=== PATIENT | female | born 1990 | race Caucasian/White ===

== ENCOUNTER 2016-07-08 15:35 | Emergency (ER) | payer MEDICAID ==
--- NOTE | 2016-07-14 08:46 | ER ---
ADMIT: 07/08/2016 RM/LOC: ER [facility] MR#: [id number] [address] [id number] [address]IB[address] TREVINO [address] [place] [address] Emergency Room Report SEX: F AGE: 25 : 1990 DATE: 07/08/2016 This 25-year-old female, status post vaginal hysterectomy done in [place] by Dr. Joseph, comes to the Emergency Department with complaints of abdominal pain. She states her [place] is no longer holding her pain, it has become severe. See T sheet for history physical. Her exam was remarkable for a lightly touch of her abdomen, she screamed in pain. Again, just by placing a stethoscope on her abdomen, she screamed in pain. CBC was significant for a hemoglobin of 9.7. CT scans showed likely blood in the pelvis. I did discuss her care with Dr. Joseph who stated the patient was a somewhat difficult patient to manage and required high doses of narcotics to control recurrent pain. The patient is discharged in stable condition. Given prescription for Ultram, instructed to follow up with Dr. Joseph this week. DIAGNOSIS: Abdominal pain. Austin Rios MD/ xander JOB #: [id number] CC: Lei Yip MD, Attending Physician [facility], Family Physician
== END 2016-07-08 19:30 | disposition home or self-care (01) ==
LOC: ER 15:35
DX: R10.31 Right lower quadrant pain (principal); R10.32 Left lower quadrant pain; Z90.710 Acquired absence of both cervix and uterus; Z79.899 Other long term (current) drug therapy